=== PATIENT | male | born 1935 | race Caucasian/White ===

== ENCOUNTER 2022-05-10 14:15 | Emergency (ER) | payer OTHER, MEDICARE ==
[~2022-05-10] VITALS: Ht 188 cm; Wt 81.8 kg
[2022-05-10] MEDS ORDERED: TETanus/Pertussis (Acell)/Diphther VAC/PF (Tdap-Adult) 0.5ml syringe IMVAC ONE (15:10)
[2022-05-10 15:26] VITALS: BP 172/93
--- NOTE | 2022-05-10 16:46 | NUR ---
Patient is a resident at [facility]. Spoke to Dez from facility. He plans to have uber ordered for patient for transport back to facility.
--- NOTE | 2022-05-10 16:50 | NUR ---
[employer]ber ordered by facility, [address] in 14 minutes to arrive.
== END 2022-05-10 17:01 | disposition home or self-care (01) ==
LOC: ER 14:16
DX: S01.01XA Laceration without foreign body of scalp, initial encounter (principal); I51.9 Heart disease, unspecified; W19.XXXA Unspecified fall, initial encounter; Y93.89 Activity, other specified; Y92.89 Other specified places as the place of occurrence of the external cause; Y99.8 Other external cause status
CPT/HCPCS: 12001; 70450; 72125; 76100; 90471; 90715; 99285